=== PATIENT | female | born 1960 | race Caucasian/White ===

== ENCOUNTER → 2017-06-18 | Outpatient (CLI) | payer OTHER ==
[~2017-06-18] MED LIST: ACYC-114 PO; AMLO5TAB2 PO; CIPR500T87 PO; CYSTO CONRAY II 250 ML VIAL UR ONE
== END | disposition home or self-care (01) ==
LOC: RAD 15:15
PROVIDERS: ATTEND Obstetrics & Gynecology
DX: N82.8 Other female genital tract fistulae (principal); T88.8XXD Other specified complications of surgical and medical care, not elsewhere classified, subsequent encounter
CPT/HCPCS: 74430; Q9958

== ENCOUNTER 2017-06-19 13:02 | Emergency (ER) | payer OTHER ==
[~2017-06-19] VITALS: Ht 165.1 cm; Wt 67.4 kg
[2017-06-19 14:17] LABS: MICROSCOPIC AUTO
[2017-06-19 14:25] LABS: CULTURE INDICATED? YES
[2017-06-19 15:39] VITALS: BP 139/85
[2017-06-20] MEDS ORDERED: ACYC-114 PO (17:18)
[2017-06-20] MEDS ORDERED: AMLO5TAB2 PO (17:18)
[2017-06-20] MEDS ORDERED: CIPR500T87 PO (17:19)
== END 2017-06-19 15:44 | disposition home or self-care (01) ==
LOC: ED 14:43
DX: N82.8 Other female genital tract fistulae (principal); Z90.710 Acquired absence of both cervix and uterus
CPT/HCPCS: 51102; 51702; 81001; 87077; 87086; 87186; 99284

== ENCOUNTER 2017-06-20 15:45 | Emergency (ER) | payer OTHER ==
[~2017-06-20] VITALS: Ht 165.1 cm; Wt 67.3 kg
[2017-06-20 15:56] VITALS: BP 146/96
[2017-06-20] MEDS ORDERED: ACYC-114 PO (17:18)
[2017-06-20] MEDS ORDERED: AMLO5TAB2 PO (17:18)
[2017-06-20] MEDS ORDERED: CIPR500T87 PO (17:19)
== END 2017-06-20 18:30 | disposition home or self-care (01) ==
LOC: ED 18:10
DX: T83.038A Leakage of other urinary catheter, initial encounter (principal); I10 Essential (primary) hypertension; Z88.0 Allergy status to penicillin; Z88.1 Allergy status to other antibiotic agents; Z90.710 Acquired absence of both cervix and uterus; Y84.8 Other medical procedures as the cause of abnormal reaction of the patient, or of later complication, without mention of misadventure at the time of the procedure; Y92.89 Other specified places as the place of occurrence of the external cause
CPT/HCPCS: 51702